=== PATIENT | male | born 1960 | race American Indian/Alaskan Native ===

== ENCOUNTER 2021-11-30 20:48 | Emergency (ER) | payer MEDICAID ==
[2021-11-30] MEDS ORDERED: SODIUM CHLORIDE 0.9% 1000 ML 1,000 ML IV ONE (21:55)
[2021-11-30] MEDS ORDERED: ONDANSETRON 4 MG/2 ML INJ IV ONE (21:55)
--- NOTE | 2021-11-30 22:09 | Emergency Department Report ---
ED Fall HPI - General Chief Complaint: Fall Stated Complaint: ABD PAIN/WEAKNESS Time Seen by Provider: 11/30/21 21:51 Source: patient Mode of arrival: Stretcher - History of Present Illness Initial Comments: 61-year-old male alcoholic who presents with diffuse abdominal pain and headache that started after a fall. He said he has been drinking all day. No visual changes reported. No other modifying or associated factors reported. MD Complaint: fall - Related Data Previous Rx's Medication Instructions Recorded Last Taken Type chlordiazePOXIDE [Librium] 25 mg PO Q6H 5 Days #20 cap NS 12/01/21 Unknown Rx Allergies Allergy/AdvReac Type Severity Reaction Status Date / Time bee pollen Allergy Itching Verified 11/30/21 21:49 Penicillins Allergy Hives Verified 11/30/21 21:49 ED Review of Systems ROS: Stated complaint: ABD PAIN/WEAKNESS Other details as noted in HPI Comment: All other systems reviewed and negative Musculoskeletal: arthralgia, myalgia ED Past Medical Hx - Past Medical History Previous Medical History?: Yes Hx Hypertension: Yes Hx Congestive Heart Failure: Yes Hx of Cancer: Yes (Skin) Hx COPD: Yes Additional medical history: PUD - Surgical History Past Surgical History?: No - Social History Smoking Status: Current Every Day Smoker Substance Use Type: Alcohol - Medications Home Medications: Home Medications Medication Instructions Recorded Confirmed Last Taken Type chlordiazePOXIDE [Librium] 25 mg PO Q6H 5 Days #20 cap NS 12/01/21 Unknown Rx ED Physical Exam - General Limitations: No Limitations General appearance: alert, in no apparent distress - Head Head exam: Present: normal inspection - Eye Eye exam: Present: normal appearance Pupils: Present: normal accommodation - ENT ENT exam: Present: normal exam, normal orophraynx, mucous membranes moist - Neck Neck exam: Present: normal inspection, full ROM. Absent: tenderness - Respiratory Respiratory exam: Present: normal lung sounds bilaterally. Absent: respiratory distress, accessory muscle use - Cardiovascular Cardiovascular Exam: Present: regular rate, normal rhythm, normal heart sounds - GI/Abdominal GI/Abdominal exam: Present: soft, tenderness (Mildly diffuse tenderness), normal bowel sounds. Absent: distended - Back Exam Back exam: Present: normal inspection. Absent: tenderness, CVA tenderness (R), CVA tenderness (L) - Neurological Exam Neurological exam: Present: alert - Psychiatric Psychiatric exam: Present: normal affect - Skin Skin exam: Present: warm, normal color ED Course Vital Signs 11/30/21 20:49 Temperature 98.1 F Pulse Rate 102 H Respiratory 18 Rate Blood Pressure 136/84 O2 Sat by Pulse 97 Oximetry ED Medical Decision Making - Lab Data Result diagrams: 11/30/21 22:09 11/30/21 22:09 - Medical Decision Making Here with fall associated with headache and abdominal pain--in a patient that is alcoholic--which raise concern for injury so we will go ahead and get a CT scan of the brain, cervical, and abdomen/pelvic--we will also check routine labs including CBC, CMP, urinalysis and alcohol level. In the meantime we will give 1 L IV fluid for hydration with Zofran 4 mg IV x1 and a banana bag for symptomatic relief noted with mild anemia and with EtOH 0.43 -- will continue hydration --and di scharge when sober-- Critical care attestation.: If time is entered above; I have spent that time in minutes in the direct care of this critically ill patient, excluding procedure time. ED Disposition Clinical Impression: Fall Qualifiers: Encounter type: initial encounter Qualified Code(s): W19.XXXA - Unspecified fall, initial encounter Alcohol intoxication Qualifiers: Complication of substance-induced condition: with unspecified complication Qualified Code(s): F10.929 - Alcohol use, unspecified with intoxication, unspecified Disposition: 01 HOME / SELF CARE / HOMELESS Is pt being admited?: No Does the pt Need Aspirin: No Condition: Stable Instructions: Binge-Drinking Information, Adult Additional Instructions: Avoid excessive alcohol drink to help your overall health Increase your daily fluid to help your hydration Please call and follow-up with your primary doctor in the next 3 to 5 days for progress Please do not hesitate to call or return to emergency if your symptoms worsen Prescriptions: chlordiazePOXIDE [Librium] 25 mg PO Q6H 5 Days #20 cap NS Referrals: SUSU AVENDAÑO MD [Referring] - 3-5 Days Time of Disposition: 06:29
[2021-11-30 22:34] LABS: Basophils # (Auto) 0.1 K/mm3 (0.0-0.1); Basophils % (Auto) 1.8 % (0.0-1.8); Eosinophils % (Auto) 0.7 % (0.0-4.3); Hematocrit 33.8 % (35.5-45.6); Hemoglobin 11.2 gm/dl (11.8-15.2); Lymphocytes # (Auto) 1.9 K/mm3 (1.2-5.4); Mean Corpuscular HGB Conc 33 % (32-34); Mean Corpuscular Volume 95 fl (84-94); Monocytes # (Auto) 0.2 K/mm3 (0.0-0.8); Monocytes % (Auto) 6.1 % (0.0-7.3); Platelet Count 255 K/mm3 (140-440); Red Blood Count 3.55 M/mm3 (3.65-5.03); Red Cell Distribution Width 18.4 % (13.2-15.2)
[2021-11-30 23:06] LABS: INR 1.03 (0.87-1.13); Partial Thromboplastin Time 26.6 Sec. (24.2-36.6)
[2021-11-30 23:18] LABS: Alanine Aminotransferase 30 units/L (7-56); Albumin 4.5 g/dL (3.9-5); BUN/Creatinine Ratio 21; Blood Urea Nitrogen 17 mg/dL (9-20); Calcium 8.8 mg/dL (8.4-10.2); Hemolysis Index 10
[2021-12-01] MEDS ORDERED: SODIUM CHLORIDE 0.9% 1000 ML 1,000 ML ONE (01:50)
[2021-12-01] MEDS ORDERED: ONDANSETRON 4 MG/2 ML INJ ONE (01:50)
[2021-12-01] MEDS ORDERED: THIAMINE 100 MG, FOLIC ACID 1 MG, MULTIPLE VITAMIN INJ, ADULT 10 ML in SODIUM CHLORIDE ... IV ONE (07:01)
--- NOTE | 2021-12-01 07:41 | Cat Scan Report ---
CT HEAD WITHOUT CONTRAST INDICATION / CLINICAL INFORMATION: Fall. TECHNIQUE: CT head was performed without administration of intravenous contrast. All CT scans at this location are performed using CT dose reduction for ALARA by means of automated exposure control. COMPARISON: None available. FINDINGS: CEREBRAL HEMISPHERES: Generalized atrophy and bilateral regions of periventricular white matter hypoa ttenuation compatible with microvascular ischemia are demonstrated. No midline shift. Basal cisterns patent. HEMORRHAGE: None. CEREBELLUM / BRAINSTEM: No significant abnormality. ORBITS: No significant abnormality. SOFT TISSUES: No significant abnormality. SKULL: No significant abnormality. PARANASAL SINUSES / MASTOID AIR CELLS: Normal as visualized. ADDITIONAL FINDINGS: None. IMPRESSION: 1. No acute intracranial abnormality. Signer Name: Brennen Ho II, MD Signed: 12/01/2021 7:36 AM Workstation Name: [id number]
--- NOTE | 2021-12-01 07:42 | Cat Scan Report ---
CT CERVICAL SPINE WITHOUT CONTRAST INDICATION / CLINICAL INFORMATION: Fall. TECHNIQUE: Axial CT images were obtained through the cervical spine. Sagittal and coronal reformatted images were produced. All CT scans at this location are performed using CT dose reduction for ALARA by means of automated exposure control. COMPARISON: None available. FINDINGS: MANDIBLE: No significant abnormality of the visualized mandible or TMJs. SKULL BASE: No significant abnormality of the skull base. CRANIOCERVICAL JUNCTION: No significant abnormality of the craniocervical junction. CERVICAL SPINE: Cervical spine demonstrates normal alignment without evidence of acute fracture. No s evere central stenosis. SOFT TISSUES: No significant abnormality of soft tissues or musculature. THYROID: No significant abnormality. UPPER CHEST: No significant abnormality of the visualized chest. ADDITIONAL FINDINGS: None. IMPRESSION: 1. No evidence of acute osseous injury. Signer Name: Brennen Ho II, MD Signed: 12/01/2021 7:37 AM Workstation Name: [id number]
--- NOTE | 2021-12-01 07:48 | Cat Scan Report ---
CT ABDOMEN AND PELVIS WITH CONTRAST INDICATION / CLINICAL INFORMATION: Fall/abdominal pain. TECHNIQUE: Axial CT images were obtained through the abdomen and pelvis after IV contrast. All CT sc ans at this location are performed using CT dose reduction for ALARA by means of automated exposure c ontrol. COMPARISON: None available. FINDINGS: LOWER CHEST: No significant abnormality of the imaged chest. LIVER: Diffuse low attenuation compatible with hepatic steatosis. GALLBLADDER / BILE DUCTS: No significant abnormality. Biliary ducts grossly unremarkable. SPLEEN: No significant abnormality. PANCREAS: No significant abnormality. ADRENALS: No significant abnormality. KIDNEYS/URETERS: Small bilateral renal cysts. No acute traumatic injury involving the kidneys. STOMACH / DUODENUM / SMALL BOWEL: The stomach, duodenum, and small bowel demonstrate no significant a bnormality. No specific abnormality of the mesentery demonstrated. COLON: Diverticulosis without acute inflammation. APPENDIX: No significant abnormality. PERITONEUM: No free air or free fluid are present within the abdomen or pelvis. LYMPH NODES: No significant adenopathy. AORTA / ARTERIES: No significant abnormality. IVC / VEINS: No significant abnormality. URINARY BLADDER: No significant abnormality. REPRODUCTIVE ORGANS: The entirety of the pelvis is not included on the study. No acute fractures are demonstrated involving the lower rib cage, lower thoracic spine, lumbar spine, or included pelvis/pro ximal femurs. SKELETAL SYSTEM: No significant abnormality. ADDITIONAL ABDOMINAL/PELVIC FINDINGS: None. IMPRESSION: 1. No acute findings within the abdomen or pelvis. Signer Name: Brennen Ho II, MD Signed: 12/01/2021 7:43 AM Workstation Name: [id number]
[2021-12-01] MEDS ORDERED: ACETAMINOPHEN 500 MG TAB PO ONE (15:03)
[2021-12-01 16:19] VITALS: BP 157/88
--- NOTE | 2021-12-03 09:58 | Electrocardiograph Report ---
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
== END 2021-12-01 18:19 | disposition home or self-care (01) ==
LOC: ED 20:48
DX: F10.129 Alcohol abuse with intoxication, unspecified (principal); I10 Essential (primary) hypertension; F17.200 Nicotine dependence, unspecified, uncomplicated; W19.XXXA Unspecified fall, initial encounter; Y93.89 Activity, other specified; Y92.89 Other specified places as the place of occurrence of the external cause; Y99.8 Other external cause status
CPT/HCPCS: 36415; 70450; 72125; 74177; 80053; 85025; 85610; 85730; 93005; 96361; 96365; 96366; 96375; 99284; J2405; J7030; Q9967; 80320; G0480